=== PATIENT | female | born 1970 ===

== ENCOUNTER 2017-07-12 06:10 | Emergency (ER) | payer BC, OTHER ==
[2017-07-12 06:27] VITALS: BMI 49.9
[2017-07-12 06:30] VITALS: RESP 16
[2017-07-12] MEDS ORDERED: Iohexol 240 (50 ml) PO ONE (07:18)
[2017-07-12] MEDS ORDERED: Sodium Chloride 0.9% 1,000 ML IV STA (07:19)
[2017-07-12 07:38] LABS: BASO % 0.3 % (0.0-2.0); EOS # 0.2 K/uL (0.0-0.7); EOS % 1.6 % (0.0-4.0); HEMOGLOBIN 14.1 g/dL (12.0-16.0); LYMPH # 1.5 K/uL (1.0-4.3); LYMPH % 15.9 % (20.0-40.0); MEAN CELL VOLUME 83.7 fl (81.0-99.0); MEAN CORPUSCULAR HEMOGLOBIN 28.2 pg (27.0-31.0); MEAN CORPUSCULAR HGB CONC 33.7 g/dL (33.0-37.0); MEAN PLATELET VOLUME 9.9 fl (7.2-11.7); MONO # 0.7 K/uL (0.0-0.8); MONO % 7.6 % (0.0-10.0); NEUT # 7.1 K/uL (1.8-7.0); NEUT % 74.6 % (50.0-75.0); RBC 5.01 Mil/uL (3.80-5.20); RED CELL DISTRIBUTION WIDTH 13.8 % (11.5-14.5); WHITE BLOOD COUNT 9.6 K/uL (4.8-10.8)
--- NOTE | 2017-07-12 07:42 | ED PDOC ---
HPI: Abdomen Time Seen by Provider: 07/12/17 07:10 Chief Complaint (Nursing): Abdominal Pain Chief Complaint (Provider): Abdominal Pain History Per: Patient History/Exam Limitations: no limitations Onset/Duration Of Symptoms: Days (x1) Current Symptoms Are (Timing): Still Present Additional Complaint(s): 46 year old female with a past medical history of high cholesterol, who presents to the ED complaining of abdominal pain x1 day. Patient states the pain began suddenly today and goes across her upper abdomen and radiates to her back. Confirms nausea and non-bloody vomiting. Denies the pain radiating to any other areas. Patient also denies chest pain, shortness of breath, dysuria, and new food or drink. PMD: [facility] Past Medical History Reviewed: Historical Data, Nursing Documentation, Vital Signs Vital Signs: Last Vital Signs Temp 97.2 F L 07/12/17 06:28 Pulse 86 07/12/17 06:28 Resp 16 07/12/17 06:28 BP 145/91 H 07/12/17 06:28 Pulse Ox 98 07/12/17 11:08 - Medical History PMH: Anemia, Anxiety, Asthma, Bronchitis, Hypercholesterolemia, Migraine Denies: Chronic Kidney Disease - Surgical History Surgical History: Appendectomy, Tonsillectomy, - Family History Family History: States: Unknown Family Hx - Social History Alcohol: None - Home Medications Home Medications: Ambulatory Orders Medication Instructions Recorded Ibuprofen [Advil] 2 tab PO PRN PRN 12/12/14 Ibuprofen [Motrin Tab] 800 mg PO Q8 PRN 12/13/14 Oxycodone HCl/Acetaminophen 1 tab PO Q4 PRN 12/30/14 [Percocet 325 mg-5 mg] Pravastatin Sodium [Pravastatin] 40 mg PO DAILY 12/30/14 Naproxen [Naprosyn Tab] 500 mg PO BID PRN #20 tab 05/03/15 Tramadol Hydrochloride [Tramadol] 50 mg PO Q6H PRN #10 tab 05/03/15 Ibuprofen [Motrin] 600 mg PO Q6 #20 tab 04/11/16 oxyCODONE/Acetaminophen [Percocet 1 ea PO Q6 PRN #5 tab 04/11/16 5/325 mg Tab] Famotidine [Pepcid] 20 mg PO DAILY PRN #6 tab 07/12/17 Ibuprofen [Motrin] 600 mg PO TID 7 Days tab 07/12/17 - Allergies Allergies/Adverse Reactions: Allergies Allergy/AdvReac Type Severity Reaction Status Date / Time No Known Allergies Allergy Verified 07/12/17 06:27 Review of Systems ROS Statement: Except As Marked, All Systems Reviewed And Found Negative Cardiovascular: Negative for: Chest Pain Respiratory: Negative for: Shortness of Breath Gastrointestinal: Positive for: Nausea, Vomiting, Abdominal Pain. Negative for : Diarrhea, Hematemesis Genitourinary Female: Negative for: Dysuria Physical Exam - Reviewed Nursing Documentation Reviewed: Yes Vital Signs Reviewed: Yes - Physical Exam Appears: Positive for: Non-toxic, No Acute Distress Head Exam: Positive for: ATRAUMATIC, NORMAL INSPECTION, NORMOCEPHALIC Skin: Positive for: Normal Color, Warm, Dry. Negative for: Rash Eye Exam: Positive for: EOMI, Normal appearance, PERRL Neck: Positive for: Normal, Painless ROM, Supple Cardiovascular/Chest: Positive for: Regular Rate, Rhythm. Negative for: Murmur Respiratory: Positive for: Normal Breath Sounds. Negative for: Respiratory Distress Gastrointestinal/Abdominal: Positive for: Tenderness (mild tenderness across upper abdomen) Back: Positive for: Normal Inspection. Negative for: L CVA Tenderness, R CVA Tenderness, Vertebral Tenderness Extremity: Positive for: Normal ROM. Negative for: Pedal Edema, Deformity Neurologic/Psych: Positive for: Alert, Oriented (x3). Negative for: Motor/ Sensory Deficits - Laboratory Results Result Diagrams: 07/12/17 07:30 07/12/17 07:58 Interpretation Of Abn Labs: no acute - ECG ECG: Positive for: Interpreted By Me, Viewed By Me ECG Rhythm: Positive for: Normal QRS, Normal ST Segment, Sinus Rhythm O2 Sat by Pulse Oximetry: 98 (RA) Pulse Ox Interpretation: Normal - Radiology X-Ray: Interpreted by Me, Viewed By Me X-Ray Interpretation: No Acute Disease - Progress ED Course And Treament: 1131: Stable. AAOx3. Pain free. Tolerated PO. Fu with pcp. Medical Decision Making Medical Decision Making: Time: 07:18 Initial Impression: Abdominal pain Initial Plan: --CT Abdomen and Pelvis PO and IV contrast --EKG --Alcohol serum --CMP --Lipase --Troponin I --ED urine --Urine dip --CBC w/ differential --Portable CXR --Dilaudid 1 mg IV --Sodium Chloride 0.9% 1,000 mls/hr --Iohexol 50 ml PO --Reglan 10 mg IV --Reevaluation Scribe Attestation: Documented by Devaughn Gramajo, acting as a scribe for Woo Gong MD. Provider Scribe Attestation: All medical record entries made by the Scribe were at my direction and personally dictated by me. I have reviewed the chart and agree that the record accurately reflects my personal performance of the history, physical exam, medical decision making, and the department course for this patient. I have also personally directed, reviewed, and agree with the discharge instructions and disposition. Disposition - Clinical Impression Clinical Impression: Abdominal pain - Patient ED Disposition Is Patient to be Admitted: No Counseled Patient/Family Regarding: Studies Performed, Diagnosis, Need For Followup, Rx Given - Disposition Referrals: [facility] [Outside] - 07/13/17 Paulino ARANGO,MD Kathleen [Medical Doctor] - 07/13/17 Disposition: Routine/Home Disposition Time: 11:35 Condition: STABLE Additional Instructions: Return if not better in 3 days. Prescriptions: Famotidine [Pepcid] 20 mg PO DAILY PRN #6 tab PRN Reason: Pain Ibuprofen [Motrin] 600 mg PO TID 7 Days tab Instructions: Acute Abdominal Pain (ED) Forms: [facility] ED School/Work Excuse
[2017-07-12 08:16] LABS: ALB/GLOB RATIO 1.3 (1.0-2.1); ALBUMIN 3.6 g/dL (3.5-5.0); ALT/SGPT 38 U/L (9-52); AST/SGOT 20 U/L (14-36); BLOOD UREA NITROGEN 14 mg/dl (7-17); CALCIUM 8.6 mg/dL (8.4-10.2); GFR AFRICAN-AMERICAN > 60; GFR NON-AFRICAN AMERICAN > 60; LIPASE 265 U/L (23-300)
[2017-07-12] MEDS ORDERED: Sodium Chloride 0.9% 50 ML IV ONE (10:16)
[2017-07-12] MEDS ORDERED: Iohexol 300 50 ML ONE (10:16)
--- NOTE | 2017-07-12 11:21 | CT ---
PROCEDURE: CT Abdomen and Pelvis with contrast HISTORY: abd pain COMPARISON: Comparison is made with the previous study dated 05/03/2015 TECHNIQUE: Contrast dose: 95 cc of Omnipaque 300. Axial and reformatted coronal and sagittal CT images of the abdomen and pelvis were obtained after IV and oral contrast administration. Radiation dose: Total exam DLP = 1093.77 mGy-cm. This CT exam was performed using one or more of the following dose reduction techniques: Automated exposure control, adjustment of the mA and/or kV according to patient size, and/or use of iterative reconstruction technique. FINDINGS: LOWER THORAX: No evidence of acute pathology at the lung bases. LIVER: Mild hepatomegaly and hepatic steatosis is again noted. GALLBLADDER AND BILE DUCTS: Unremarkable. PANCREAS: Unremarkable. No gross lesion or ductal dilatation. SPLEEN: Unremarkable. ADRENALS: Unremarkable. No mass. KIDNEYS AND URETERS: Unremarkable. No hydronephrosis. No solid mass. VASCULATURE: Unremarkable. No aortic aneurysm. BOWEL: Mild constipation. . No obstruction. No gross mural thickening. APPENDIX: No evidence of appendicitis. PERITONEUM: Unremarkable. No free fluid. No free air. LYMPH NODES: Unremarkable. No enlarged lymph nodes. BLADDER: Unremarkable. REPRODUCTIVE: Patient status post partial hysterectomy since the previous exam. The right adnexa is prominent in size. There is 2.5 centimeter cyst at the right adnexa. BONES: No acute fracture. OTHER FINDINGS: None. IMPRESSION: No CT evidence of cholecystitis pancreatitis or appendicitis. Status post partial hysterectomy. 2.5 centimeter cyst at the right adnexa. Mild hepatomegaly and mild hepatic steatosis
[2017-07-12 11:46] VITALS: BP 140/82; PULSE 78; TEMP 97.1; O2SAT 100
--- NOTE | 2017-07-12 11:53 | RAD ---
HISTORY: Abdominal pain. COMPARISON: 04/11/2016. Single-view chest. FINDINGS: LUNGS: No active pulmonary disease. PLEURA: No significant pleural effusion identified, no pneumothorax apparent. CARDIOVASCULAR: No radiographic findings to suggest acute or significant cardiovascular disease. OSSEOUS STRUCTURES: No significant abnormalities. VISUALIZED UPPER ABDOMEN: Normal. OTHER FINDINGS: None. IMPRESSION: No active disease. No significant interval change compared to the prior examination(s).
--- NOTE | 2017-07-12 17:06 | CARD ---
APPROVED REPORT EKG Measurement Heart [id number] <Conclusion> Normal sinus rhythm Low voltage QRS Borderline ECG
== END 2017-07-12 11:54 | disposition home or self-care (01) ==
LOC: H.ER 06:10
DX: R10.9 Unspecified abdominal pain (principal); E78.00 Pure hypercholesterolemia, unspecified
CPT/HCPCS: 71045; 74177; 80053; 81025; 83690; 84484; 85025; 93005; 96374; 96375; 99282; G0480; J1170; J2765; J7040; Q9966; Q9967